=== PATIENT | female | born 1955 | race Caucasian/White ===

== ENCOUNTER 2020-03-11 07:19 | Emergency (ER) | payer BC ==
[2020-03-11] MEDS ORDERED: Ketorolac 60 MG/2 ML SDV IM ONE (07:38)
[2020-03-11] MEDS ORDERED: HYDROmorphone 1 MG/ML Syringe IM ONE (07:38)
--- NOTE | 2020-03-11 07:47 | EDM.PDOC ---
ED HPI GENERAL MEDICAL PROBLEM - General Chief Complaint: Lower Extremity Injury/Pain Stated Complaint: L HIP PAIN Time Seen by Provider: 03/11/20 07:26 Source of Information: Reports: Patient History Limitations: Reports: No Limitations - History of Present Illness INITIAL COMMENTS - FREE TEXT/NARRATIVE: The patient presents with left lower back pain. This has been going on for about a week. She does lots of hard work at her job. Lifting, twisting and pushing. She was using her exercise ball to help stretch and she heard a pop and then had pain to the left lower back. She saw her chiropractor and he gave her some exercises to do and he felt it was a pulled muscle. She did not feel better. She went to the walk in clinic and they gave her a shot for pain and some flexeril and meloxicam to take at home. That did not help. She has no numbness or weakness to the left leg. She has no bowel or bladder problems. Onset: Gradual Duration: Week(s): Location: Reports: Back Quality: Reports: Sharp Severity: Severe Improves with: Reports: None Worsens with: Reports: None Associated Symptoms: Reports: No Other Symptoms - Related Data Allergies Allergy/AdvReac Type Severity Reaction Status Date / Time No Known Allergies Allergy Verified 03/11/20 07:41 Home Meds: Home Meds Hydrocodone/Acetaminophen [Hydrocodone-Acetamin 5-325 mg] 1 - 2 each PO Q6HR PRN #20 tablet 03/11/20 [Rx] lisinopriL [Lisinopril] 10 mg PO DAILY 03/11/20 [History] Review of Systems - Review of Systems Review Of Systems: See Below Constitutional: Reports: No Symptoms Eyes: Reports: No Symptoms Ears: Reports: No Symptoms Nose: Reports: No Symptoms Mouth/Throat: Reports: No Symptoms Respiratory: Reports: No Symptoms Cardiovascular: Reports: No Symptoms GI/Abdominal: Reports: No Symptoms Genitourinary: Reports: No Symptoms Musculoskeletal: Reports: Back Pain (Left lower) ED EXAM, GENERAL - Physical Exam Exam: See Below Exam Limited By: No Limitations General Appearance: Alert, Mild Distress Ears: Normal External Exam Nose: Normal Inspection Head: Atraumatic, Normocephalic Neck: Normal Inspection Respiratory/Chest: No Respiratory Distress, Lungs Clear, Normal Breath Sounds Cardiovascular: Regular Rate, Rhythm, No Edema, No Murmur GI/Abdominal: Soft, Non-Tender, No Organomegaly, No Mass Back Exam: Other (Pain upon palpation to the left lower back) Extremities: Normal Inspection Neurological: Alert, Oriented, No Motor/Sensory Deficits Course - Vital Signs Last Recorded V/S: Last Vital Signs Temp 97.7 F 03/11/20 07:27 Pulse 106 H 03/11/20 07:27 Resp 20 03/11/20 07:27 BP 161/104 H 03/11/20 07:27 Pulse Ox 98 03/11/20 07:27 - Orders/Labs/Meds Meds: Medications Discontinued Medications Generic Name Dose Route Start Last Admin Trade Name Freq PRN Reason Stop Dose Admin Hydromorphone HCl 1 mg 03/11/20 07:38 03/11/20 08:01 Dilaudid IM 03/11/20 07:39 1 mg ONETIME ONE Administration Ketorolac Tromethamine 60 mg 03/11/20 07:38 03/11/20 08:00 Toradol IM 03/11/20 07:39 60 mg ONETIME ONE Administration - Re-Assessments/Exams Free Text/Narrative Re-Assessment/Exam: 03/11/20 07:48 I ordered an x-ray of her back, dilaudid 1mg IM, and toradol 60mg IM. 03/11/20 11:37 She feels a little better. Her x-ray shows mild scoliosis and mild degenerative changes. I was able to get an MRI and it showed diffuse degenerative change. Most prominent finding is neural foraminal stenosis at L4-5 causing compromise upon both exiting nerve roots. She feels better. I will get her on hydrocodone and have her follow up with Dr Gresham. Departure - Departure Time of Disposition: 11:45 Disposition: Home, Self-Care 01 Condition: Good Clinical Impression: Bulging lumbar disc Low back pain Qualifiers: Chronicity: acute Back pain laterality: left Sciatica presence: without sciatica Qualified Code(s): M54.5 - Low back pain - Discharge Information *PRESCRIPTION DRUG MONITORING PROGRAM REVIEWED*: Not Applicable *COPY OF PRESCRIPTION DRUG MONITORING REPORT IN PATIENT ROSS: Not Applicable Prescriptions: Hydrocodone/Acetaminophen [Hydrocodone-Acetamin 5-325 mg] 1 - 2 each PO Q6HR PRN #20 tablet PRN Reason: Pain Referrals: PCP,None [Primary Care Provider] - Shakeel Gresham MD [Physician] - 1 Week Forms: ED Department Discharge, ED Return to Work/School Form Additional Instructions: Take your meds as prescribed. If that does not help, try the hydrocodone. Please return if you are worse. Sepsis Event Note (ED) - Evaluation Sepsis Screening Result: No Definite Risk - Focused Exam Vital Signs: Vital Signs Temp Pulse Resp BP Pulse Ox 03/11/20 07:27 97.7 F 106 H 20 161/104 H 98
--- NOTE | 2020-03-11 08:17 | CR ---
Lumbar spine: AP and lateral views of the lumbar spine were obtained. Comparison: No prior lumbar spine imaging is available. Mild disc space narrowing is noted at L2-3. Minimal retrolisthesis is seen at L2-3. Scattered anterior endplate osteophytes are noted. Mild scoliosis is present. Pedicles are intact. Visualized transverse and spinous processes are intact. Sacroiliac joints appear within normal limits. Surgical clips are seen from prior cholecystectomy. Impression: 1. Mild scoliosis and mild degenerative change. Diagnostic code #2 This report was dictated in MDT
--- NOTE | 2020-03-11 11:04 | MR ---
MRI lumbar spine Technique: T1 and T2 weighted axial images were obtained from above the T11-12 disc through the L5-S1 disc. T1, T2 and fat suppressed inversion recovery sagittal images were obtained. Comparison: Previous plain film lumbar spine study performed earlier on the same day (7:39 AM). Findings: T11-12: Slight circumferential disc bulge with asymmetric posterolateral disc bulge on the left side. Nerve roots appear to exit without definite compromise. No central canal stenosis is seen. Degenerative endplate signal change is noted. T12-L1: Mild disc space narrowing is seen. Minimal circumferential disc bulge is present. No central canal stenosis is seen. Mild degenerative apophyseal change is noted. No central canal stenosis or neural foraminal stenosis is seen. L1-2: Minimal circumferential disc bulge is noted. Posterior disc maintains a mostly concave margin. Mild degenerative endplate signal change is seen. Mild degenerative apophyseal change is noted. No central canal stenosis is seen. Neural foramina appear to be patent where the nerve roots exit. L2-3: Mild disc space narrowing is seen. Mild circumferential disc bulge is noted. Posterior disc maintains a slight concave margin. Mild asymmetric posterolateral disc bulge is seen to the left side. Disc bulging is noted into both inferior neural foramina. Nerve roots appear to exit without definite compromise. Mild degenerative apophyseal change is seen. L3-4: Minimal circumferential disc bulge is seen. Minimal degenerative apophyseal change is noted. No central canal stenosis is seen. Slight disc bulging is seen into both inferior neural foramina. Nerve roots appear to exit without definite compromise. L4-5: Minimal disc space narrowing noted. Slight circumferential disc bulge is seen. Posterior disc maintains a planar margin. Mild degenerative apophyseal change is noted. No central canal stenosis is seen. Disc bulging is noted into both inferior neural foramina causing bilateral neural foraminal stenosis. Findings are felt to cause some compromise upon both exiting L4 nerve roots. L5-S1: Minimal circumferential disc bulge is seen. Posterior disc maintains planar margin. Mild degenerative apophyseal change is noted. No central canal stenosis is seen. Neural foramina are patent where the nerve roots exit. Degenerative dehydration change noted throughout the discs. The conus medullaris and cauda equina shows no abnormal signal or mass. Impression: 1. Diffuse degenerative change as noted above. 2. Most prominent finding is neural foraminal stenosis at L4-5 causing compromise upon both exiting nerve roots. Diagnostic code #3 This report was dictated in MDT
== END 2020-03-11 11:50 | disposition home or self-care (01) ==
LOC: JD.ED 07:19
DX: M51.26 Other intervertebral disc displacement, lumbar region (principal); Z79.899 Other long term (current) drug therapy
CPT/HCPCS: 72100; 72148; 96372; 99283; J1170; J1885

== ENCOUNTER 2021-08-28 06:08 | Emergency (ER) | payer BC ==
[2021-08-28] MEDS ORDERED: valACYclovir 1,000 MG Tab PO STA (06:50)
--- NOTE | 2021-08-28 07:13 | EDM.PDOC ---
ED HPI GENERAL MEDICAL PROBLEM - General Chief Complaint: Skin Complaint Stated Complaint: RT SHOULDER PAIN\ RT ARM RASH Time Seen by Provider: 08/28/21 06:14 Source of Information: Reports: Patient History Limitations: Reports: No Limitations - History of Present Illness INITIAL COMMENTS - FREE TEXT/NARRATIVE: Mrs. Carlin is a very pleasant 66-year-old woman who now presents the ED stating that she developed right shoulder pain more than 1 month ago, then developed pruritic fluid-filled blisters on her right wrist 3 to 4 days ago, which have since appeared in clusters further upper upper extremity, and even onto the right side of her neck. They are now erythematous, but have not crusted over. The patient acknowledges that she is under considerable stress, as her is fighting cancer. The patient states that she saw her chiropractor on Tuesday, who manipulated her shoulder, but it did not help. She then saw her PCP yesterday, but only about her right shoulder. She forgot to talk about the rash. Her PCP thought that perhaps the patient had a muscle spasm, therefore prescribed some Flexeril and [place]. The patient states that she developed nausea and vomiting with the [place], therefore does not want to take anymore. She took some acetaminophen last night, which did not help. At triage, the patient's initial BP was found to be mildly elevated at 141/81, otherwise, she is hemodynamically stable, afebrile, saturating 90% on room air. She appears to be somewhat anxious, although in no acute distress. Prior to a few days ago, other than her right shoulder pain, the patient denies having a recent fever, chills, sore throat, ear pain, nasal or sinus congestion, cough, dyspnea, chest pain, palpitations, nausea, vomiting, constipation, diarrhea, abdominal pain, urinary symptoms, recent weight gain or weight loss, recent bloody bowel movements or black bowel movements, headaches, or rashes. The patient's PCP is Angle Ugarte NP. She has received 2 Sanitors vaccinations, although no influenza vaccination this season. Treatments LEAD PRINTER: Reports: Other (see below) Other Treatments LEAD PRINTER: lotion Right Shoulder Pain Score (Numeric/FACES): 8 - Related Data Allergies Allergy/AdvReac Type Severity Reaction Status Date / Time No Known Allergies Allergy Verified 08/28/21 06:36 Home Meds: Home Meds Cyclobenzaprine HCl 10 mg PO TID PRN 08/28/21 [History] Losartan Potassium [Cozaar] 50 mg PO DAILY 08/28/21 [History] Metoclopramide HCl 5 mg PO DAILY 08/28/21 [History] traMADol [Ultram] 1 tab PO Q6H PRN #20 tab 08/28/21 [Rx] valACYclovir [Valtrex] 1 tab PO Q8H #20 tablet 08/28/21 [Rx] Past Medical History Cardiovascular History: Reports: Hypertension - Past Surgical History HEENT Surgical History: Reports: Adenoidectomy, Oral Surgery (dental extractions), Tonsillectomy, Other (See Below) (Right ear canal surgery) Cardiovascular Surgical History: Reports: Other (See Below) (Coronary angiogram 1988 - ) GI Surgical History: Reports: Cholecystectomy (around 2011) Female Surgical History: Reports: Hysterectomy (complete) Social & Family History - Tobacco Use Tobacco Use Status *Q: Never Tobacco User - Caffeine Use Caffeine Use: Reports: Coffee - Alcohol Use Alcohol Use History: Yes Alcohol Use Frequency: Rarely - Recreational Drug Use Recreational Drug Use: No - Living Situation & Occupation Living situation: Reports: , with Spouse Occupation: Unemployed ED ROS GENERAL - Review of Systems Review Of Systems: Comprehensive ROS is negative, except as noted in HPI. ED EXAM, SKIN/RASH Exam: See Below Exam Limited By: No Limitations General Appearance: Alert, WD/WN, No Apparent Distress Skin: Other (Dried raised pustule surrounded by an erythematous base in clusters in numerous locations of the right upper extremity and extending to the right side of the patient's neck) Course - Vital Signs Last Recorded V/S: Last Vital Signs Temp 36.1 C 08/28/21 06:27 Pulse 88 08/28/21 06:27 Resp 18 08/28/21 06:27 BP 141/81 H 08/28/21 06:27 Pulse Ox 98 08/28/21 06:27 - Orders/Labs/Meds Meds: Medications Discontinued Medications Generic Name Dose Route Start Last Admin Trade Name Freq PRN Reason Stop Dose Admin Valacyclovir HCl 1,000 mg 08/28/21 06:50 Valacyclovir 1,000 Mg Tab PO 08/28/21 06:51 ONETIME STA - Re-Assessments/Exams Free Text/Narrative Re-Assessment/Exam: 08/28/21 07:07 The patient appears to have shingles. Although current guidelines recommend that an antiviral be started within 72 hours of the onset of lesions, and exception is made if new lesions continue to erupt, and the lesion to the right side of the patient's neck appears to be new. The patient will therefore be started on valacyclovir 1 g, and I will submit a prescription for her to receive 1 g every 8 hours for 7 days. Current guidelines do not recommend treatment with steroids. As per the HPI, the patient did not tolerate the [place] that was prescribed to her yesterday. I suggested she try tramadol, and she can take acetaminophen and/or ibuprofen with it. With respect to the patient's right shoulder pain, it sounds like she likely strained it when lifting some of her 's heavy equipment. Since she has already seen Ms. Ugarte about it, I recommended that if her pain has not improved significantly within a week, that she return to Ms. Ugarte to perhaps undergo an MRI, and if the MRI shows damage, that she then either go to physical therapy or be referred to Dr. Kasper. Departure - Departure Time of Disposition: 07:10 Disposition: Home, Self-Care 01 Condition: Good Clinical Impression: Shingles - Discharge Information *PRESCRIPTION DRUG MONITORING PROGRAM REVIEWED*: Not Applicable *COPY OF PRESCRIPTION DRUG MONITORING REPORT IN PATIENT ROSS: Not Applicable Prescriptions: traMADol [Ultram] 1 tab PO Q6H PRN #20 tab PRN Reason: Pain (Moderate 4-6) valACYclovir [Valtrex] 1 tab PO Q8H #20 tablet Referrals: Angle Ugarte NP [Primary Care Provider] - Additional Instructions: You were seen in the emergency room for 1 month of right shoulder pain, and a rash to your right upper extremity and the right side of your neck for the past 3 to 4 days. Based on your history and physical examination, your right shoulder pain is most likely due to strain or injury from lifting your 's heavy equipment, but the rash appears to be due to shingles. You have been started on the antiviral medication valacyclovir (Valtrex), and a prescription for Valtrex has been provided to you. Take 1 tablet of Valtrex every 8 hours, starting at 3:00 this afternoon, 08/28/2021, as prescribed. Finish the entire prescription unless told otherwise by your PCP. In addition, a prescription for the opioid pain reliever tramadol has been provided to you. You may take 1 tablet of tramadol up to every 6 hours, as needed for pain. If you take tramadol, do not drive for 12 hours afterwards. Tramadol may cause constipation, so consider taking a stool softener. You may take [id number] acetaminophen (Tylenol) and/or ibuprofen (Advil, Motrin) in addition to the tramadol. If your shoulder pain has not significantly improved within a week, we recommend you follow-up with your PCP, Angle Ugarte NP, for further evaluation. If any other problems, please do not hesitate to return to the ER. Sepsis Event Note (ED) - Evaluation Sepsis Screening Result: No Definite Risk - Focused Exam Vital Signs: Vital Signs Temp Pulse Resp BP Pulse Ox 08/28/21 06:27 36.1 C 88 18 141/81 H 98
== END 2021-08-28 07:40 | disposition home or self-care (01) ==
LOC: JD.ED 06:08
DX: B02.9 Zoster without complications (principal); I10 Essential (primary) hypertension; Z79.899 Other long term (current) drug therapy
CPT/HCPCS: 99283; A9270

== ENCOUNTER 2022-07-16 16:57 | Emergency (ER) | payer MEDICARE, BC | END 2022-07-16 20:34 | disposition home or self-care (01) | LOC: JD.ED 16:57 | DX: S09.90XA Unspecified injury of head, initial encounter (principal); I10 Essential (primary) hypertension; Z79.899 Other long term (current) drug therapy; Z90.49 Acquired absence of other specified parts of digestive tract; Z90.710 Acquired absence of both cervix and uterus; W01.10XA Fall on same level from slipping, tripping and stumbling with subsequent striking against unspecified object, initial encounter | CPT/HCPCS: 70450; 70450-26; 99283 ==